=== PATIENT | male | born 1975 | race Caucasian/White ===

== ENCOUNTER 2017-10-04 00:34 | Emergency (ER) | payer OTHER ==
[2017-10-04] MEDS: HYDROmorphONE 2 MG/ML SYG IV (00:56)
[2017-10-04] MEDS: SOD CHLORIDE 0.9% 1,000 ML IV (00:56)
[2017-10-04] MEDS: ONDANSETRON 4 MG INJ IV (00:56)
[2017-10-04] MEDS: DIPHTH/TET/ACEL PERTUSS (ADULT) 0.5 ML VIAL IM* (00:56)
[2017-10-04 00:58] LABS: ADD MAN DIFF? NO
[2017-10-04 01:03] LABS: BASOPHILS % 0.4 % (0.0-2.0); EOSINOPHILS # 0.1 10^3/ul (0.0-0.5); EOSINOPHILS % 1.1 % (0.0-7.0); HEMATOCRIT 44.9 % (42.0-52.0); HEMOGLOBIN 15.5 g/dl (14.0-18.0); LYMPHOCYTES # 2.9 10^3/ul (0.8-2.9); LYMPHOCYTES % 28.8 % (15.0-51.0); MEAN CORPUSCULAR HEMOGLOBIN 30.9 pg (29.0-33.0); MEAN CORPUSCULAR HGB CONC 34.5 g/dl (32.0-37.0); MEAN CORPUSCULAR VOLUME 89.4 fl (82.0-101.0); MEAN PLATELET VOLUME 8.6 fl (7.4-10.4); MONOCYTE # 0.7 10^3/ul (0.3-0.9); MONOCYTES % 7.4 % (0.0-11.0); NEUTROPHIL # 6.2 10^3/ul (1.6-7.5); PLATELET COUNT 335 10^3/UL (140-415); RED BLOOD COUNT 5.02 10^6/ul (4.70-6.10); RED CELL DISTRIBUTION WIDTH 11.9 % (11.5-14.5)
[2017-10-04 01:21] LABS: INR 0.91; PROTIME 12.3 Sec (11.9-14.9)
[2017-10-04 01:22] LABS: PARTIAL THROMBOPLASTIN TIME 29.4 Sec (25.0-35.0)
[2017-10-04 01:28] LABS: ANION GAP 17 (8-16); BLOOD UREA NITROGEN 16 mg/dl (7-20); CALCIUM 9.4 mg/dl (8.4-10.2); CARBON DIOXIDE 25 mmol/L (21-31); CHLORIDE 107 mmol/L (97-110); CREATININE 0.99 mg/dl (0.61-1.24); GLUCOSE 109 mg/dl (70-220); POTASSIUM 4.8 mmol/L (3.5-5.1); SODIUM 144 mmol/L (135-144)
[2017-10-04 04:53] LABS: HEPATITIS B SURFACE ANTIGEN NEGATIVE (NEGATIVE)
[2017-10-04 05:10] LABS: HEPATITIS C VIRAL ANTIBODY NEGATIVE (NEGATIVE)
[2017-10-04 05:11] LABS: HEPATITIS B SURFACE ANTIBODY NEGATIVE (NEGATIVE)
[2017-10-04 05:14] LABS: HIV 1&2 ANTIBODY NEGATIVE (NEGATIVE)
== END 2017-10-04 07:15 | disposition short-term general hospital (02) ==
LOC: E/R 00:34
DX: S34.102A Unspecified injury to L2 level of lumbar spinal cord, initial encounter (principal); S80.812A Abrasion, left lower leg, initial encounter; S60.512A Abrasion of left hand, initial encounter; F17.210 Nicotine dependence, cigarettes, uncomplicated; R51 Headache; R07.9 Chest pain, unspecified; R40.2142 Coma scale, eyes open, spontaneous, at arrival to emergency department; R40.2252 Coma scale, best verbal response, oriented, at arrival to emergency department; R40.2362 Coma scale, best motor response, obeys commands, at arrival to emergency department; W01.198A Fall on same level from slipping, tripping and stumbling with subsequent striking against other object, initial encounter; Y92.832 Beach as the place of occurrence of the external cause; Z23 Encounter for immunization
CPT/HCPCS: 70450; 71045; 72125; 72128; 72131; 73130-LT; 73590; 80048; 80306; 85025; 85610; 85730; 86703; 86706; 86803; 87340; 90471; 90715; 96374; 96375; 99285-25